=== PATIENT | male | born 1930 | race Caucasian/White ===

== ENCOUNTER 2019-01-08 00:19 | Day surgery (SDC) | payer MEDICARE, OTHER ==
[~2019-01-08 00:19] MED LIST: AMIO200 PO; ASPI325; ASPI81CH PO; ATOR10 PO; Amoxicillin500 MG PO; CEPH500 PO; CYAN500 PO; FINA5 PO; IRON325 MG PO; MAGOXI400 PO; METO50 PO; METO50ER PO; OMEPRAZOLE MAGN20 MG PO; PRAV20 PO; ROPI.25 PO; RXONDA4ODT MM; TAMS.4ER PO; WARF5 PO
== END 2019-01-08 15:35 | disposition home or self-care (01) ==
LOC: ATC 00:19
DX: D50.9 Iron deficiency anemia, unspecified (principal); D51.9 Vitamin B12 deficiency anemia, unspecified; I12.9 Hypertensive chronic kidney disease with stage 1 through stage 4 chronic kidney disease, or unspecified chronic kidney disease; N18.9 Chronic kidney disease, unspecified; D63.1 Anemia in chronic kidney disease; I48.91 Unspecified atrial fibrillation; I25.10 Atherosclerotic heart disease of native coronary artery without angina pectoris; Z87.891 Personal history of nicotine dependence; Z79.899 Other long term (current) drug therapy; Z79.01 Long term (current) use of anticoagulants
CPT/HCPCS: 36430; 86850; 86900; 86901; 86923; J7050; P9016

== ENCOUNTER 2019-03-12 12:27 | Day surgery (SDC) | payer MEDICARE, OTHER ==
[~2019-03-12] VITALS: Ht 177.8 cm; Wt 68.2 kg
[~2019-03-12 12:27] MED LIST changes: +BISA10S PR; +DONE5 PO; +FERSU300 PO; +Flonase 0.05% N16 GM; +OMEPRAZOLE20 MG PO; +PHYSICIANS1000 MCG/1 IJ; +SUCR1 PO
--- NOTE | 2019-03-12 14:46 | NUR ---
03/12/19 1446 Miguelina Gayle PT'S STATES PATIENT WAS RECENTLY DIAGNOSED WITH "WATER AROUND HIS LUNGS." BILATERAL WHEEZES HEARD THROUGHOUT LUNGS. CHART GIVEN TO DR. MALIK FOR ANESTHESIA REVIEW. DR. MALIK CONSULTED AND AGREES PATIENT NEEDS TO BE ANESTHESIA CASE. DR. NOWAK INTO PATIENT TO SEE PATIENT, AGREES WITH PLAN TO CONTINUE PROCEDURE MAC/ANESTHESIA CASE.
--- NOTE | 2019-03-12 15:15 | NUR ---
03/12/19 1515 Miguelina GayleEnid LIDOCAINE 4% UPDRAFT TREATMENT CONDUCTED IN ENDO ROOM DUE TO NEW ORDER.
== END 2019-03-12 16:14 | disposition home or self-care (01) ==
LOC: ORSCSDS 12:27
DX: R93.5 Abnormal findings on diagnostic imaging of other abdominal regions, including retroperitoneum (principal); K21.9 Gastro-esophageal reflux disease without esophagitis; K44.9 Diaphragmatic hernia without obstruction or gangrene; K29.70 Gastritis, unspecified, without bleeding; I12.9 Hypertensive chronic kidney disease with stage 1 through stage 4 chronic kidney disease, or unspecified chronic kidney disease; N18.3 Chronic kidney disease, stage 3 (moderate); I25.10 Atherosclerotic heart disease of native coronary artery without angina pectoris; I48.91 Unspecified atrial fibrillation; G47.33 Obstructive sleep apnea (adult) (pediatric); Z79.899 Other long term (current) drug therapy
CPT/HCPCS: 88305; 88342; J2001; J2250; J2704; J7120

== ENCOUNTER 2019-04-30 00:40 | Day surgery (SDC) | payer MEDICARE, OTHER ==
[2019-04-29 09:46] LABS: BASOPHILS ABSOLUTE AUTO 0.01 K/mm3 (0.00-0.23); BASOPHILS PERCENT AUTO 0 % (0-2); EOSINOPHILS ABSOLUTE AUTO 0.15 K/mm3 (0.00-0.68); EOSINOPHILS PERCENT AUTO 2 % (0-6); Hematocrit 27.3 % (37.0-53.0); Hemoglobin 7.6 g/dL (13.5-17.5); IMMATURE GRAN ABSOLUTE AUTO 0.01 K/mm3 (0.00-0.10); IMMATURE GRAN PERCENT AUTO 0 % (0-1); LYMPHOCYTES ABSOLUTE AUTO 0.92 K/mm3 (0.84-5.20); LYMPHOCYTES PERCENT AUTO 14 % (21-46); MONOCYTES ABSOLUTE AUTO 0.58 K/mm3 (0.16-1.47); MONOCYTES PERCENT AUTO 9 % (4-13); Mean Corpuscular HGB Conc 27.8 g/dL (31.5-36.5); Mean Corpuscular Volume 101 fL (80-100); NEUTROPHILS ABSOLUTE AUTO 5.07 K/mm3 (1.96-9.15); NEUTROPHILS PERCENT AUTO 75 % (41-73); Platelet Count 189 K/mm3 (150-400); RDW Coefficient Variation 17.9 % (11.7-14.2); RDW Standard Deviation 66.3 fL (35.1-46.3); Red Blood Cell Count 2.71 M/mm3 (4.30-5.90); White Blood Cell Count 6.74 K/mm3 (4.00-11.30)
[2019-04-29 10:01] LABS: Percent Saturation 5.7 % (20.0-50.0)
== END 2019-04-30 23:03 | disposition home or self-care (01) ==
LOC: ATC 00:40
PROVIDERS: Registered Nurse Oncology
PROC: 30243N1 Transfusion of Nonautologous Red Blood Cells into Central Vein, Percutaneous Approach (ICD-10-PCS; principal; 2019-04-30)
DX: D50.9 Iron deficiency anemia, unspecified (principal); D51.9 Vitamin B12 deficiency anemia, unspecified; I12.9 Hypertensive chronic kidney disease with stage 1 through stage 4 chronic kidney disease, or unspecified chronic kidney disease; N18.3 Chronic kidney disease, stage 3 (moderate); D63.1 Anemia in chronic kidney disease; I48.91 Unspecified atrial fibrillation; I25.10 Atherosclerotic heart disease of native coronary artery without angina pectoris; H54.40 Blindness, one eye, unspecified eye; J44.9 Chronic obstructive pulmonary disease, unspecified; G47.30 Sleep apnea, unspecified; I73.9 Peripheral vascular disease, unspecified; R05 Cough; Z95.1 Presence of aortocoronary bypass graft; Z95.5 Presence of coronary angioplasty implant and graft; Z90.49 Acquired absence of other specified parts of digestive tract; Z87.891 Personal history of nicotine dependence; Z79.01 Long term (current) use of anticoagulants; Z79.899 Other long term (current) drug therapy
CPT/HCPCS: 36415; 36430; 82607; 82728; 82746; 83540; 83550; 85025; 86850; 86900; 86901; 86923; J7050; P9016

== ENCOUNTER 2020-01-15 00:28 | Day surgery (SDC) | payer MEDICARE, OTHER ==
[2020-01-13 10:44] LABS: BASOPHILS ABSOLUTE AUTO 0.01 K/mm3 (0.00-0.23); BASOPHILS PERCENT AUTO 0 % (0-2); EOSINOPHILS ABSOLUTE AUTO 0.26 K/mm3 (0.00-0.68); EOSINOPHILS PERCENT AUTO 3 % (0-6); Hematocrit 26.7 % (37.0-53.0); Hemoglobin 7.9 g/dL (13.5-17.5); IMMATURE GRAN ABSOLUTE AUTO 0.02 K/mm3 (0.00-0.10); IMMATURE GRAN PERCENT AUTO 0 % (0-1); LYMPHOCYTES ABSOLUTE AUTO 0.84 K/mm3 (0.84-5.20); LYMPHOCYTES PERCENT AUTO 11 % (21-46); MONOCYTES ABSOLUTE AUTO 0.85 K/mm3 (0.16-1.47); MONOCYTES PERCENT AUTO 11 % (4-13); Mean Corpuscular HGB Conc 29.6 g/dL (31.5-36.5); Mean Corpuscular Volume 105 fL (80-100); Mean Platelet Volume 11.4 fL (9.1-12.4); NEUTROPHILS PERCENT AUTO 75 % (41-73); Platelet Count 189 K/mm3 (150-400); RDW Coefficient Variation 16.8 % (11.7-14.2); RDW Standard Deviation 64.8 fL (35.1-46.3); Red Blood Cell Count 2.55 M/mm3 (4.30-5.90); White Blood Cell Count 7.78 K/mm3 (4.00-11.30)
[2020-01-13 10:46] LABS: Percent Saturation 12.2 % (20.0-50.0)
== END 2020-01-15 15:39 | disposition home or self-care (01) ==
LOC: ATC 00:28
PROVIDERS: Registered Nurse Oncology
DX: I12.9 Hypertensive chronic kidney disease with stage 1 through stage 4 chronic kidney disease, or unspecified chronic kidney disease (principal); N18.3 Chronic kidney disease, stage 3 (moderate); E53.8 Deficiency of other specified B group vitamins; D63.1 Anemia in chronic kidney disease; J44.9 Chronic obstructive pulmonary disease, unspecified; H54.61 Unqualified visual loss, right eye, normal vision left eye; I25.10 Atherosclerotic heart disease of native coronary artery without angina pectoris; Z95.5 Presence of coronary angioplasty implant and graft; Z87.891 Personal history of nicotine dependence; Z79.01 Long term (current) use of anticoagulants; Z79.899 Other long term (current) drug therapy
CPT/HCPCS: 36415; 82607; 82728; 83540; 83550; 85025; 86850; 86900; 86901; 86923; J7050; P9016

== ENCOUNTER 2020-03-31 21:27 | Inpatient (IN) | payer MEDICARE, OTHER ==
[~2020-03-31] VITALS: Ht 177.8 cm; Wt 67.8 kg
[2020-03-31 22:58] LABS: BASOPHILS ABSOLUTE AUTO 0.01 K/mm3 (0.00-0.23); BASOPHILS PERCENT AUTO 0 % (0-2); EOSINOPHILS ABSOLUTE AUTO 0.03 K/mm3 (0.00-0.68); EOSINOPHILS PERCENT AUTO 0 % (0-6); Hematocrit 34.7 % (37.0-53.0); Hemoglobin 10.8 g/dL (13.5-17.5); IMMATURE GRAN ABSOLUTE AUTO 0.05 K/mm3 (0.00-0.10); IMMATURE GRAN PERCENT AUTO 0 % (0-1); LYMPHOCYTES ABSOLUTE AUTO 0.21 K/mm3 (0.84-5.20); LYMPHOCYTES PERCENT AUTO 2 % (21-46); MONOCYTES ABSOLUTE AUTO 0.36 K/mm3 (0.16-1.47); MONOCYTES PERCENT AUTO 3 % (4-13); Mean Corpuscular HGB 30.6 pg (26.0-34.0); Mean Corpuscular HGB Conc 31.1 g/dL (31.5-36.5); Mean Corpuscular Volume 98 fL (80-100); Mean Platelet Volume 11.4 fL (9.1-12.4); NEUTROPHILS ABSOLUTE AUTO 11.63 K/mm3 (1.96-9.15); NEUTROPHILS PERCENT AUTO 95 % (41-73); Platelet Count 170 K/mm3 (150-400); RDW Coefficient Variation 15.3 % (11.7-14.2); RDW Standard Deviation 55.3 fL (35.1-46.3); Red Blood Cell Count 3.53 M/mm3 (4.30-5.90); White Blood Cell Count 12.29 K/mm3 (4.00-11.30)
[2020-03-31 23:30] LABS: Alanine Aminotransfer (ALT/SGP 29 U/L (12-78); Albumin, Blood 2.7 g/dL (3.4-5.0); Albumin/Globulin Ratio 0.8 (0.8-1.8); Alk Phos 116 U/L (50-136); Anion Gap 5 mmol/L (6-16); Aspartate Aminotrans (AST/SGOT 37 U/L (12-37); Bilirubin, Total 0.3 mg/dL (0.1-1.0); Blood Urea Nitrogen 36 mg/dL (8-24); CO2, Blood 25 mmol/L (21-32); Calcium, Blood 8.3 mg/dL (8.5-10.1); Chloride, Blood 113 mmol/L (98-108); Globulin, Blood 3.5 g/dL (2.2-4.0); Glomerular Filtration Rate >60 (60-); Glucose, Blood 121 mg/dL (70-99); Potassium, Blood 4.3 mmol/L (3.5-5.5); Sodium, Blood 143 mmol/L (136-145); Total Protein, Blood 6.2 g/dL (6.4-8.2); Troponin I <0.015 ng/mL (0.000-0.040)
[2020-04-01 00:51] LABS: Influenza A, PCR Negative (NEGATIVE); Influenza B, PCR Negative (NEGATIVE); Resp Syncytial Virus, PCR Negative (NEGATIVE); SARS-Cov-2 (COVID-19) PCR, MMC Negative (NEGATIVE)
--- NOTE | 2020-04-01 04:15 | NUR ---
SHIFT SUMMARY PT ER ADMIT THIS SHIFT FOR COPD EXAC. PT IS A/O X3-4 BUT IS FORGETFUL. 3L O2 IN PLACE. RA AT BASELINE PER ER NURSE REPORT. PT RESP E/U, SATS WNL. LUNGS DIMINISED T/O WITH WET PRODUCTIVE COUGH. PT DENIES PAIN OR SOB. IV ABX ADMINISTERED IN ED, AND IVF INFUSING AT THIS TIME. IV SOLUMEDROL Q 6HR TELE IN PLACE WITH AFIB RHYTHMN WITH PACED BEATS AT 80. ADMISSION IS COMPLETE ASIDE FROM MED REC, NEED TO OBTAIN LIST FROM PT PHAMRMACY. BED ALARM IN PLACE FOR SAFETY, BED IN LOWEST POSITION.
[2020-04-01] MEDS ORDERED: ISOSORBIDE MONO30 MG PO (09:48)
[2020-04-01] MEDS ORDERED: PROAIR DIGIHAL90 MCG INH (09:48)
[2020-04-01] MEDS ORDERED: METO25ER PO (09:49)
[2020-04-01] MEDS ORDERED: BUDE.25 INH (09:50)
[2020-04-01] MEDS ORDERED: AIRDUO DIGIHAL1 EAC1 INH (09:50)
[2020-04-01] MEDS ORDERED: WARF5 PO (09:57)
--- NOTE | 2020-04-01 18:06 | NUR ---
SHIFT SUMMARY PT IS A/O X3; PLEASANT AND COOPERATIVE WITH CARE. HE IS NEW [place] AND USES HEARING AIDES. 1-SBA W/FWW TO THE BSC/BA. DOES NOT C/O OF ANY CP OR SOB. HAS BEEN RESTING COMFORTABLY FOR THE MAJORITY OF THE DAY. GETS BREATHING TREATMENTS. EKG IN THE AM. VSS; RESTING COMFORTABLY WITH CALL LIGHT IN REACH.
--- NOTE | 2020-04-02 03:41 | NUR ---
SHIFT SUMMARY PATIENT HAD NO ACUTE CHANGES OBSERVED. AXOX 3 WITH HX OF DEMENTIA. ONE ASSIST TO BSC AND [place]. PIV REMAINS INTACT. ROBOTIC TECHNICIAN REPORTS PACED @ 98. DENIES CHEST PAIN, SOB, AND N/V. LR INFUSING AT 75 mL/HR. VSS/AFEBRILE. EKG IN AM. CALL LIGHT IN REACH. BED IN LOWEST POSITION. WILL CONTINUE TO MONITOR UNTIL DAY SHIFT NURSE ASSUMES CARE.
[2020-04-02 04:46] LABS: BASOPHILS ABSOLUTE AUTO 0.02 K/mm3 (0.00-0.23); BASOPHILS PERCENT AUTO 0 % (0-2); EOSINOPHILS PERCENT AUTO 0 % (0-6); Hematocrit 30.6 % (37.0-53.0); Hemoglobin 9.4 g/dL (13.5-17.5); IMMATURE GRAN ABSOLUTE AUTO 0.08 K/mm3 (0.00-0.10); IMMATURE GRAN PERCENT AUTO 0 % (0-1); LYMPHOCYTES ABSOLUTE AUTO 0.33 K/mm3 (0.84-5.20); LYMPHOCYTES PERCENT AUTO 2 % (21-46); MONOCYTES ABSOLUTE AUTO 0.87 K/mm3 (0.16-1.47); MONOCYTES PERCENT AUTO 5 % (4-13); Mean Corpuscular HGB 29.8 pg (26.0-34.0); Mean Corpuscular HGB Conc 30.7 g/dL (31.5-36.5); Mean Corpuscular Volume 97 fL (80-100); Mean Platelet Volume 12.1 fL (9.1-12.4); NEUTROPHILS ABSOLUTE AUTO 17.76 K/mm3 (1.96-9.15); NEUTROPHILS PERCENT AUTO 93 % (41-73); Platelet Count 136 K/mm3 (150-400); RDW Coefficient Variation 15.4 % (11.7-14.2); RDW Standard Deviation 54.6 fL (35.1-46.3); Red Blood Cell Count 3.15 M/mm3 (4.30-5.90); White Blood Cell Count 19.06 K/mm3 (4.00-11.30)
[2020-04-02 05:01] LABS: Anion Gap 5 mmol/L (6-16); Blood Urea Nitrogen 39 mg/dL (8-24); Bun/Creatinine Ratio 33.6 (12.0-20.0); CO2, Blood 26 mmol/L (21-32); Calcium, Blood 8.8 mg/dL (8.5-10.1); Chloride, Blood 111 mmol/L (98-108); Creatinine, Blood 1.16 mg/dL (0.60-1.20); Glomerular Filtration Rate >60 (60-); Glucose, Blood 153 mg/dL (70-99); Potassium, Blood 4.8 mmol/L (3.5-5.5); Sodium, Blood 142 mmol/L (136-145)
[2020-04-02 05:30] LABS: Base Excess Venous -1.5 mmol/L; Bicarbonate Venous 22.9 mmol/L (24.0-30.0); PCO2 Venous 45.8 mmHg (38-42); PO2 Venous 60.2 mmHg (38-42); pH Blood Venous 7.33 (7.34-7.37)
[2020-04-02 12:35] LABS: International Normalized Ratio 2.16; Prothrombin Time Results 22.1 Sec (9.7-11.5)
--- NOTE | 2020-04-02 16:57 | NUR ---
SHIFT SUMMARY PT RESTING QUIETLY AT START OF SHIFT. WOKE EASILY FOR CARE. PT UP TO EOB FOR MEALS. USING URINAL AT BS NEEDED. DR NUNO IN TO SEE PT THIS AM. NEW ORDERS PLACED. HOME MEDS ORDERED WELL. COUMADIN TO BE RESTARTED TONIGHT; PER PHARMACY. PT WITH HX OF A-FIB. PT MEDICATED EARLIER FOR C/O PAIN TO L SHOULDER. PT REPORTED FALLING AT HOME SOME TIME AGO, GETTING "A SHOT IN IT" WHICH SEEMED TO HELP FOR A WHILE, BUT MAY NEED ANOTHER ONE. PT IS A&O, ABLE TO MAKE NEEDS KNOWN.
--- NOTE | 2020-04-03 04:18 | NUR ---
SHIFT SUMMARY PATIENT HAD NO ACUTE CHANGES OBSERVED. AXOX 3 AND ONE ASSIST TO BSC. USES URINAL AT BEDSIDE. PIV REMAINS INTACT. NO FLUIDS INFUSING. DENIES PAIN, SOB, AND N/V. VSS/AFEBRILE. COOPERATIVE WITH CARE. CALL LIGHT IN REACH. BED IN LOWEST POSITION. WILL CONTINUE TO MONITOR UNTIL DAY SHIFT NURSE ASSUMES CARE.
[2020-04-03 05:33] LABS: International Normalized Ratio 2.05; Prothrombin Time Results 21.1 Sec (9.7-11.5)
[2020-04-03] MEDS ORDERED: AZIT500 PO (10:35)
[2020-04-03] MEDS ORDERED: VISBIOME PROBI1 EACH PO (10:36)
[2020-04-03] MEDS ORDERED: PRED20 PO (10:36)
[2020-04-03] MEDS ORDERED: CEFU500T30 PO (10:37)
--- NOTE | 2020-04-03 13:09 | NUR ---
DISCHARGE NOTE PATIENT ALERT AND ORIENTED, [place]. PATIENT DISCHARGED TO HOME. PATIENT UP INDEPENDENTLY TO THE WHEELCHAIR FOR DISCHARGE. DISCHARGE INFORMAITON EXPLAINED TO MELVINTENT. PATIENT ENCOURAGED TO REVIEW DISCHARGE MEDICATIONS WITH ONCE AT HOME, PATIENT STATES SHE TAKES CARE OF HIS MEDICATIONS. UNABLE TO BE PRESENT DUE TO RECENT SURGERY. PATIENT BELONGINGS WITH PATIENT UPON DISCHARGE. IV'S REMOVED PRIOR TO DISCHARGE. PATIENT TO VEHICLE VIA WHEELCHAIR WITH BLINDSTITCH LAPEL PADDER.
== END 2020-04-03 12:52 | disposition home or self-care (01) | DRG 871 ==
LOC: ER 21:27 → MEDS 23:51 → ER 04-01 03:00 → MEDS 04-01 03:00
PROVIDERS: Internal Medicine; Physician Assistant; ADMIT Internal Medicine
DX: A41.9 Sepsis, unspecified organism (principal); J18.9 Pneumonia, unspecified organism; J96.01 Acute respiratory failure with hypoxia; J96.02 Acute respiratory failure with hypercapnia; J44.0 Chronic obstructive pulmonary disease with (acute) lower respiratory infection; I48.20 Chronic atrial fibrillation, unspecified; Z66 Do not resuscitate; Z20.828 Contact with and (suspected) exposure to other viral communicable diseases; N18.30 Chronic kidney disease, stage 3 unspecified; I25.10 Atherosclerotic heart disease of native coronary artery without angina pectoris; Z95.0 Presence of cardiac pacemaker; Z95.5 Presence of coronary angioplasty implant and graft; D63.1 Anemia in chronic kidney disease; Z86.73 Personal history of transient ischemic attack (TIA), and cerebral infarction without residual deficits; Z87.891 Personal history of nicotine dependence; I25.2 Old myocardial infarction; N40.0 Benign prostatic hyperplasia without lower urinary tract symptoms; G47.33 Obstructive sleep apnea (adult) (pediatric); G30.9 Alzheimer's disease, unspecified; F02.80 Dementia in other diseases classified elsewhere, unspecified severity, without behavioral disturbance, psychotic disturbance, mood disturbance, and anxiety
CPT/HCPCS: 0241U; 36415; 71045; 80048; 80053; 82803; 83605; 84484; 85025; 85379; 85610; 87040; 93005; 93010; 94640; 94667; 94760; 96365; 96367; 96375; 99285-25; A9270; A9270-GY; J0456; J0696; J1650; J2930; J7050; J7120; J7512

== ENCOUNTER 2020-04-14 18:50 | Emergency (ER) | payer MEDICARE, OTHER ==
[~2020-04-14] VITALS: Ht 177.8 cm; Wt 70.8 kg
[~2020-04-14 18:50] MED LIST changes: +AIRDUO DIGIHAL1 EAC1 INH; +AZIT500 PO; +BUDE.25 INH; +CEFU500T30 PO; +ISOSORBIDE MONO30 MG PO; +METO25ER PO; +PRED20 PO; +PROAIR DIGIHAL90 MCG INH; +VISBIOME PROBI1 EACH PO
[2020-04-14 19:41] LABS: BASOPHILS ABSOLUTE AUTO 0.01 K/mm3 (0.00-0.23); BASOPHILS PERCENT AUTO 0 % (0-2); EOSINOPHILS ABSOLUTE AUTO 0.02 K/mm3 (0.00-0.68); EOSINOPHILS PERCENT AUTO 0 % (0-6); Hematocrit 32.1 % (37.0-53.0); Hemoglobin 9.9 g/dL (13.5-17.5); IMMATURE GRAN PERCENT AUTO 1 % (0-1); LYMPHOCYTES ABSOLUTE AUTO 0.22 K/mm3 (0.84-5.20); LYMPHOCYTES PERCENT AUTO 2 % (21-46); MONOCYTES ABSOLUTE AUTO 0.75 K/mm3 (0.16-1.47); MONOCYTES PERCENT AUTO 6 % (4-13); Mean Corpuscular HGB Conc 30.8 g/dL (31.5-36.5); Mean Corpuscular Volume 97 fL (80-100); Mean Platelet Volume 11.2 fL (9.1-12.4); NEUTROPHILS ABSOLUTE AUTO 12.56 K/mm3 (1.96-9.15); NEUTROPHILS PERCENT AUTO 92 % (41-73); Platelet Count 155 K/mm3 (150-400); RDW Coefficient Variation 16.7 % (11.7-14.2); RDW Standard Deviation 59.1 fL (35.1-46.3); White Blood Cell Count 13.66 K/mm3 (4.00-11.30)
[2020-04-14 20:00] LABS: Anion Gap 7 mmol/L (6-16); Blood Urea Nitrogen 30 mg/dL (8-24); Bun/Creatinine Ratio 26.1 (12.0-20.0); CO2, Blood 26 mmol/L (21-32); Calcium, Blood 8.2 mg/dL (8.5-10.1); Chloride, Blood 105 mmol/L (98-108); Creatinine, Blood 1.15 mg/dL (0.60-1.20); Glomerular Filtration Rate >60 (60-); Glucose, Blood 144 mg/dL (70-99); Potassium, Blood 4.3 mmol/L (3.5-5.5); Sodium, Blood 138 mmol/L (136-145)
== END 2020-04-14 21:25 | disposition home or self-care (01) ==
LOC: ER 18:50
PROVIDERS: Student in an Organized Health Care Education/Training Program
DX: R68.83 Chills (without fever) (principal); R06.00 Dyspnea, unspecified; R05 Cough; I25.2 Old myocardial infarction; I25.10 Atherosclerotic heart disease of native coronary artery without angina pectoris; J44.9 Chronic obstructive pulmonary disease, unspecified; I48.91 Unspecified atrial fibrillation; Z20.828 Contact with and (suspected) exposure to other viral communicable diseases; Z79.51 Long term (current) use of inhaled steroids; Z79.01 Long term (current) use of anticoagulants; Z79.899 Other long term (current) drug therapy; Z86.73 Personal history of transient ischemic attack (TIA), and cerebral infarction without residual deficits; Z95.0 Presence of cardiac pacemaker; Z95.5 Presence of coronary angioplasty implant and graft; Z95.1 Presence of aortocoronary bypass graft; Z87.891 Personal history of nicotine dependence
CPT/HCPCS: 71046; 80048; 85025; 99284-25

== ENCOUNTER 2020-06-07 12:44 | Emergency (ER) | payer MEDICARE, OTHER ==
[~2020-06-07] VITALS: Ht 177.8 cm; Wt 68.0 kg
[2020-06-07 15:33] LABS: BASOPHILS ABSOLUTE AUTO 0.02 K/mm3 (0.00-0.23); BASOPHILS PERCENT AUTO 0 % (0-2); EOSINOPHILS PERCENT AUTO 3 % (0-6); Hemoglobin 10.2 g/dL (13.5-17.5); IMMATURE GRAN ABSOLUTE AUTO 0.04 K/mm3 (0.00-0.10); IMMATURE GRAN PERCENT AUTO 1 % (0-1); LYMPHOCYTES ABSOLUTE AUTO 0.91 K/mm3 (0.84-5.20); LYMPHOCYTES PERCENT AUTO 13 % (21-46); MONOCYTES ABSOLUTE AUTO 0.61 K/mm3 (0.16-1.47); MONOCYTES PERCENT AUTO 9 % (4-13); Mean Corpuscular HGB 31.1 pg (26.0-34.0); Mean Corpuscular HGB Conc 30.9 g/dL (31.5-36.5); Mean Corpuscular Volume 101 fL (80-100); Mean Platelet Volume 11.3 fL (9.1-12.4); NEUTROPHILS ABSOLUTE AUTO 5.25 K/mm3 (1.96-9.15); NEUTROPHILS PERCENT AUTO 75 % (41-73); Platelet Count 183 K/mm3 (150-400); RDW Coefficient Variation 18.2 % (11.7-14.2); RDW Standard Deviation 67.6 fL (35.1-46.3); Red Blood Cell Count 3.28 M/mm3 (4.30-5.90); White Blood Cell Count 7.03 K/mm3 (4.00-11.30)
[2020-06-07 15:48] LABS: International Normalized Ratio 1.45; Prothrombin Time Results 15.2 Sec (9.7-11.5)
[2020-06-07 15:55] LABS: Alanine Aminotransfer (ALT/SGP 24 U/L (12-78); Albumin, Blood 3.3 g/dL (3.4-5.0); Albumin/Globulin Ratio 0.9 (0.8-1.8); Alk Phos 104 U/L (50-136); Anion Gap 3 mmol/L (6-16); Aspartate Aminotrans (AST/SGOT 23 U/L (12-37); Bilirubin, Total 0.3 mg/dL (0.1-1.0); Blood Urea Nitrogen 30 mg/dL (8-24); Bun/Creatinine Ratio 24.4 (12.0-20.0); CO2, Blood 28 mmol/L (21-32); Calcium, Blood 8.9 mg/dL (8.5-10.1); Chloride, Blood 110 mmol/L (98-108); Creatinine, Blood 1.23 mg/dL (0.60-1.20); Globulin, Blood 3.7 g/dL (2.2-4.0); Glomerular Filtration Rate 59 (60-); Glucose, Blood 92 mg/dL (70-99); Potassium, Blood 5.1 mmol/L (3.5-5.5); Sodium, Blood 141 mmol/L (136-145); Troponin I <0.015 ng/mL (0.000-0.040)
== END 2020-06-07 16:32 | disposition home or self-care (01) ==
LOC: ER 12:44
PROVIDERS: Physician Assistant
DX: R53.1 Weakness (principal); I25.2 Old myocardial infarction; Z91.81 History of falling; Z79.01 Long term (current) use of anticoagulants; Z79.899 Other long term (current) drug therapy; Z95.0 Presence of cardiac pacemaker; Z95.5 Presence of coronary angioplasty implant and graft; Z87.891 Personal history of nicotine dependence
CPT/HCPCS: 70450; 72070; 72100; 80053; 84484; 85025; 85610; 85730; 93005; 93010; 99284-25

== ENCOUNTER 2020-11-14 09:01 | Day surgery (SDC) | payer MEDICARE, OTHER ==
[~2020-11-14] VITALS: Ht 177.8 cm; Wt 67.0 kg
--- NOTE | 2020-11-14 12:46 | NUR ---
HANDOFF REPORT GIVEN FROM DAVY SMILEY. PT WITH SHEATH LEFT IN PLACE LEFT GROIN, STABLE. IN WAITING AREA, GAVE HER UPDATE ON TENTATIVE DISCHARGE.
--- NOTE | 2020-11-14 13:26 | NUR ---
ACT DRAWN AND IS 213. WILL RECHECK IN ANOTHER HOUR.
--- NOTE | 2020-11-14 14:37 | NUR ---
DR GREGORIO IN TO SEE PT, WAS TOLD ABOUT PT BLEEDING FROM SHEATH SITE. NO HEMATOMA NOTED AND PT NOT IN ANY DISCOMFORT. PULLED SHEATH AND IS APPLYING MANUAL PRESSURE.
--- NOTE | 2020-11-14 15:18 | NUR ---
MANUAL PRESSURE HEL FOR A TOTAL OF 40 MINUTES AT ARTERIAL GROIN SITE, LEFT SIDE, WITH HEMOSTASIS.
--- NOTE | 2020-11-14 16:54 | NUR ---
PT TO BE PLACED IN PCU FOR EXTENDED RECOVERY
--- NOTE | 2020-11-14 17:51 | NUR ---
HANDOFF REPORT GIVEN TO KRISHNA SMILEY PCU. GROIN SITE UNCHANGED AND STABLE SINCE HEMOSTASIS. PT HAS BEEN NOTIFIED OF TENTATIVE DISCHARGE TIME AND ROOM NUMBER. NO FURTHER QUESTIONS AT THIS TIME.
--- NOTE | 2020-11-14 22:43 | NUR ---
DISCHARGED PT AND GIVEN DC INSTRUCTIONS. THIS RN AND EXAMINED THE OP SITE ON THE PT'S L GROIN AND SITE INSTRUCTIONS WERE GIVEN. PT DENIED ANY PAIN AT THE SITE UPON DISCHARGE. PT WAS ABLE TO TRANSFER SELF FROM BED TO WHEELCHAIR USING PERSONAL CANE. PT TAKEN OUT BY WHEELCHAIR BY SANGEETA Vale
== END 2020-11-14 22:43 | disposition home or self-care (01) ==
LOC: MHTC 09:01 → PCU 16:41 → MHTC 22:43
DX: I35.0 Nonrheumatic aortic (valve) stenosis (principal); I25.10 Atherosclerotic heart disease of native coronary artery without angina pectoris; I11.0 Hypertensive heart disease with heart failure; I50.9 Heart failure, unspecified; Z95.1 Presence of aortocoronary bypass graft; Z95.5 Presence of coronary angioplasty implant and graft; I73.9 Peripheral vascular disease, unspecified; J44.9 Chronic obstructive pulmonary disease, unspecified; I48.20 Chronic atrial fibrillation, unspecified; I25.2 Old myocardial infarction; D50.9 Iron deficiency anemia, unspecified; G47.33 Obstructive sleep apnea (adult) (pediatric); F03.90 Unspecified dementia, unspecified severity, without behavioral disturbance, psychotic disturbance, mood disturbance, and anxiety; K21.9 Gastro-esophageal reflux disease without esophagitis; Z79.01 Long term (current) use of anticoagulants; Z95.0 Presence of cardiac pacemaker
CPT/HCPCS: 76937; 85347; 93457; 93571; 99152; 99153; A9270; C1769; C1887; C1894; J0360; J1644; J2250; J3010; J7030; J7040; J7050; Q9967

== ENCOUNTER 2021-01-06 17:02 | Inpatient (IN) | payer MEDICARE, OTHER ==
[~2021-01-06] VITALS: Ht 177.8 cm; Wt 65.3 kg
[2021-01-06 17:58] LABS: BASOPHILS ABSOLUTE AUTO 0.02 K/mm3 (0.00-0.23); BASOPHILS PERCENT AUTO 0 % (0-2); EOSINOPHILS ABSOLUTE AUTO 0.07 K/mm3 (0.00-0.68); EOSINOPHILS PERCENT AUTO 1 % (0-6); Hematocrit 24.8 % (37.0-53.0); Hemoglobin 7.6 g/dL (13.5-17.5); IMMATURE GRAN ABSOLUTE AUTO 0.07 K/mm3 (0.00-0.10); IMMATURE GRAN PERCENT AUTO 1 % (0-1); LYMPHOCYTES ABSOLUTE AUTO 0.71 K/mm3 (0.84-5.20); LYMPHOCYTES PERCENT AUTO 7 % (21-46); MONOCYTES ABSOLUTE AUTO 0.79 K/mm3 (0.16-1.47); MONOCYTES PERCENT AUTO 7 % (4-13); Mean Corpuscular HGB Conc 30.6 g/dL (31.5-36.5); Mean Corpuscular Volume 95 fL (80-100); Mean Platelet Volume 11.7 fL (9.1-12.4); NEUTROPHILS ABSOLUTE AUTO 9.01 K/mm3 (1.96-9.15); NEUTROPHILS PERCENT AUTO 84 % (41-73); Platelet Count 224 K/mm3 (150-400); RDW Coefficient Variation 15.1 % (11.7-14.2); RDW Standard Deviation 52.6 fL (35.1-46.3); Red Blood Cell Count 2.62 M/mm3 (4.30-5.90); White Blood Cell Count 10.67 K/mm3 (4.00-11.30)
[2021-01-06 18:03] LABS: Bun/Creatinine Ratio 35.9 (12.0-20.0); Calcium, Blood 8.6 mg/dL (8.5-10.1); Creatinine, Blood 1.45 mg/dL (0.60-1.20); Potassium, Blood 4.6 mmol/L (3.5-5.5)
[2021-01-06 18:16] LABS: Prothrombin Time Results 80.1 Sec (9.7-11.5)
[2021-01-06 18:30] LABS: International Normalized Ratio 8.36
[2021-01-06 21:30] LABS: SARS-Cov-2 (COVID-19) PCR, MMC NEGATIVE (NEGATIVE)
[2021-01-07 01:30] LABS: BASOPHILS ABSOLUTE AUTO 0.01 K/mm3 (0.00-0.23); BASOPHILS PERCENT AUTO 0 % (0-2); EOSINOPHILS ABSOLUTE AUTO 0.13 K/mm3 (0.00-0.68); EOSINOPHILS PERCENT AUTO 2 % (0-6); Hematocrit 21.2 % (37.0-53.0); Hemoglobin 6.5 g/dL (13.5-17.5); IMMATURE GRAN ABSOLUTE AUTO 0.06 K/mm3 (0.00-0.10); IMMATURE GRAN PERCENT AUTO 1 % (0-1); LYMPHOCYTES PERCENT AUTO 6 % (21-46); MONOCYTES ABSOLUTE AUTO 0.72 K/mm3 (0.16-1.47); MONOCYTES PERCENT AUTO 9 % (4-13); Mean Corpuscular HGB 28.9 pg (26.0-34.0); Mean Corpuscular HGB Conc 30.7 g/dL (31.5-36.5); Mean Corpuscular Volume 94 fL (80-100); Mean Platelet Volume 11.6 fL (9.1-12.4); NEUTROPHILS ABSOLUTE AUTO 6.43 K/mm3 (1.96-9.15); NEUTROPHILS PERCENT AUTO 82 % (41-73); Platelet Count 172 K/mm3 (150-400); RDW Coefficient Variation 15.1 % (11.7-14.2); RDW Standard Deviation 51.9 fL (35.1-46.3); Red Blood Cell Count 2.25 M/mm3 (4.30-5.90); White Blood Cell Count 7.85 K/mm3 (4.00-11.30)
[2021-01-07 01:45] LABS: International Normalized Ratio 2.37
[2021-01-07 01:48] LABS: Albumin, Blood 2.4 g/dL (3.4-5.0); Albumin/Globulin Ratio 0.8 (0.8-1.8); Bilirubin, Total 0.2 mg/dL (0.1-1.0); Bun/Creatinine Ratio 33.3 (12.0-20.0); Calcium, Blood 8.3 mg/dL (8.5-10.1); Creatinine, Blood 1.5 mg/dL (0.60-1.20); Globulin, Blood 3.1 g/dL (2.2-4.0); Potassium, Blood 4.3 mmol/L (3.5-5.5); Total Protein, Blood 5.5 g/dL (6.4-8.2)
[2021-01-07 01:50] LABS: Prothrombin Time Results 24.4 Sec (9.7-11.5)
--- NOTE | 2021-01-07 12:53 | NUR ---
PATIENT REMAINS A&OX4 RECEIVED 1 UNIT PRB ORDERED TOLERATED TRANSFUSION WELL VS REMAINS STABLE DENIES PAIN/DISCOMFORT RESP EASY/EVEN/UNLABORED WILL CONT TO MONITOR
[2021-01-07 14:47] LABS: Hematocrit 23.1 % (37.0-53.0); Hemoglobin 7.1 g/dL (13.5-17.5)
[2021-01-07 17:36] LABS: Hematocrit 25.3 % (37.0-53.0); Hemoglobin 7.9 g/dL (13.5-17.5)
--- NOTE | 2021-01-07 17:43 | NUR ---
PATIENT REMAINS STABLE A&OX4 ABLE TO VERBALIZE NEEDS DENIES PAIN OR DISCOMFORT TRANSFUSION OF PRB ADMIN THIS SHIFT TOLERATED WELL H&H CONTINUES TO IMPROVE PER LAB RESULTS PATIENT WITH ADEQUATE PO INTAKE VOIDING CLEAR YELLOW URINE HAD NO BM THIS SHIFT SITTING UP AT BEDSIDE TOLERATED RESP EASY/EVEN/UNLABORED UPDATE GIVEN TO PATIENTS FAMILY WILL CONT TO MONITOR
[2021-01-08 01:13] LABS: Hematocrit 25.8 % (37.0-53.0)
--- NOTE | 2021-01-08 04:14 | NUR ---
SHIFT SUMMARY PT ADMITTED FOR HIGH INR. AAOX3. LAST H&H AT 0108 8.0 & 25.8. INR 2.73. NO SIGNIFICANT CHANGES THROUGHOUT SHIFT. VS STABLE, NO DISTRESS NOTED.
[2021-01-08 04:46] LABS: International Normalized Ratio 1.57; Prothrombin Time Results 16.5 Sec (9.7-11.5)
--- NOTE | 2021-01-08 12:23 | NUR ---
PT IS ALERT ORIENTED,WITH SOME FORGETFULLNESS AT TIMES,PTIS ON ROOM AIR,PT DENIES PAIN,N/V,SOB.PT IS IN BED, BED IN LOW POSITION CALL LIGHT WITHIN REACH.PT IS WAITING TO BE DISCHARGE.
== END 2021-01-08 12:22 | disposition home or self-care (01) | DRG 378 ==
LOC: ER 17:02 → MEDS 17:03
PROVIDERS: Physician Assistant; ADMIT Internal Medicine
PROC: 30233N1 Transfusion of Nonautologous Red Blood Cells into Peripheral Vein, Percutaneous Approach (ICD-10-PCS; principal; 2021-01-07)
DX: K92.2 Gastrointestinal hemorrhage, unspecified (principal); D62 Acute posthemorrhagic anemia; J44.9 Chronic obstructive pulmonary disease, unspecified; N40.0 Benign prostatic hyperplasia without lower urinary tract symptoms; N18.30 Chronic kidney disease, stage 3 unspecified; I25.10 Atherosclerotic heart disease of native coronary artery without angina pectoris; Z95.1 Presence of aortocoronary bypass graft; I25.2 Old myocardial infarction; Z86.73 Personal history of transient ischemic attack (TIA), and cerebral infarction without residual deficits; Z79.899 Other long term (current) drug therapy; Z79.01 Long term (current) use of anticoagulants; Z98.890 Other specified postprocedural states; G47.33 Obstructive sleep apnea (adult) (pediatric); Z90.49 Acquired absence of other specified parts of digestive tract; Z95.0 Presence of cardiac pacemaker
CPT/HCPCS: 36415; 36430; 80048; 80053; 85014; 85018; 85025; 85610; 86850; 86900; 86901; 86923; 90471; 90714; 93005; 93010; 96374; 96375; 96376; 99284-25; A9270; C9113; G0378; J3430; J7030; J7040; P9016; P9059; U0004

== ENCOUNTER 2021-01-11 15:32 | Inpatient (IN) | payer MEDICARE, OTHER ==
[~2021-01-11] VITALS: Ht 177.8 cm; Wt 66.7 kg
[2021-01-11 16:26] LABS: BASOPHILS ABSOLUTE AUTO 0.03 K/mm3 (0.00-0.23); BASOPHILS PERCENT AUTO 0 % (0-2); EOSINOPHILS ABSOLUTE AUTO 0.01 K/mm3 (0.00-0.68); EOSINOPHILS PERCENT AUTO 0 % (0-6); Hematocrit 25.7 % (37.0-53.0); IMMATURE GRAN ABSOLUTE AUTO 0.14 K/mm3 (0.00-0.10); IMMATURE GRAN PERCENT AUTO 1 % (0-1); LYMPHOCYTES ABSOLUTE AUTO 0.87 K/mm3 (0.84-5.20); LYMPHOCYTES PERCENT AUTO 5 % (21-46); MONOCYTES ABSOLUTE AUTO 1.21 K/mm3 (0.16-1.47); MONOCYTES PERCENT AUTO 6 % (4-13); Mean Corpuscular HGB 29.1 pg (26.0-34.0); Mean Corpuscular HGB Conc 31.1 g/dL (31.5-36.5); Mean Corpuscular Volume 94 fL (80-100); Mean Platelet Volume 11.5 fL (9.1-12.4); NEUTROPHILS ABSOLUTE AUTO 16.66 K/mm3 (1.96-9.15); NEUTROPHILS PERCENT AUTO 88 % (41-73); Platelet Count 199 K/mm3 (150-400); RDW Coefficient Variation 15.3 % (11.7-14.2); RDW Standard Deviation 52.2 fL (35.1-46.3); Red Blood Cell Count 2.75 M/mm3 (4.30-5.90); White Blood Cell Count 18.92 K/mm3 (4.00-11.30)
[2021-01-11 16:42] LABS: Albumin, Blood 2.3 g/dL (3.4-5.0); Albumin/Globulin Ratio 0.6 (0.8-1.8); Bilirubin, Total 0.3 mg/dL (0.1-1.0); Bun/Creatinine Ratio 26.1 (12.0-20.0); Calcium, Blood 8.5 mg/dL (8.5-10.1); Creatinine, Blood 1.38 mg/dL (0.60-1.20); Globulin, Blood 3.9 g/dL (2.2-4.0); Potassium, Blood 4.2 mmol/L (3.5-5.5); Total Protein, Blood 6.2 g/dL (6.4-8.2)
[2021-01-11 16:43] LABS: International Normalized Ratio 2.36; Prothrombin Time Results 24.3 Sec (9.7-11.5)
[2021-01-11 17:45] LABS: Source, Urine Clean Catch
[2021-01-11 17:49] LABS: Appearance, Urine Hazy (Clear); Bilirubin, Urine Neg (Neg); Blood, Urine Neg (Neg); Color, Urine Yellow (P-Yellow); Glucose Qualitative, Urine Neg (Neg); Ketones, Urine Neg (Neg); Leukocyte Esterase, Urine Neg (Neg); Nitrite, Urine Neg (Neg); Protein, Urine 2+ (Neg); Urobilinogen, Urine NORM (Normal)
[2021-01-11 18:06] LABS: White Blood Cells, Urine 0-2 /hpf (0-5)
[2021-01-11 18:07] LABS: Bacteria Few /hpf; Mucus Light (0-Heavy); Red Blood Cells, Urine 0-2 /hpf (0-2); Squamous Epithelial Cells Few /hpf (Few)
[2021-01-11 18:08] LABS: Amorphous Light (0-Heavy); Granular Casts 0-2 /lpf (0)
[2021-01-11 18:39] LABS: SARS-Cov-2 (COVID-19) PCR, MMC NEGATIVE (NEGATIVE)
[2021-01-12] MEDS ORDERED: CENTRUM SILVER1 EAC2 PO (00:38)
[2021-01-12] MEDS ORDERED: VITAMIN B125000 MC1 PO (00:42)
[2021-01-12] MEDS ORDERED: FERSU300 PO (00:43)
[2021-01-12 05:12] LABS: BASOPHILS ABSOLUTE AUTO 0.01 K/mm3 (0.00-0.23); BASOPHILS PERCENT AUTO 0 % (0-2); EOSINOPHILS PERCENT AUTO 0 % (0-6); IMMATURE GRAN ABSOLUTE AUTO 0.09 K/mm3 (0.00-0.10); IMMATURE GRAN PERCENT AUTO 1 % (0-1); LYMPHOCYTES PERCENT AUTO 2 % (21-46); MONOCYTES ABSOLUTE AUTO 0.26 K/mm3 (0.16-1.47); MONOCYTES PERCENT AUTO 2 % (4-13); Mean Corpuscular HGB 28.7 pg (26.0-34.0); Mean Corpuscular HGB Conc 30.4 g/dL (31.5-36.5); Mean Corpuscular Volume 94 fL (80-100); Mean Platelet Volume 11.6 fL (9.1-12.4); NEUTROPHILS ABSOLUTE AUTO 12.45 K/mm3 (1.96-9.15); NEUTROPHILS PERCENT AUTO 96 % (41-73); Platelet Count 155 K/mm3 (150-400); RDW Coefficient Variation 15.2 % (11.7-14.2); RDW Standard Deviation 52.5 fL (35.1-46.3); Red Blood Cell Count 2.44 M/mm3 (4.30-5.90); White Blood Cell Count 13.01 K/mm3 (4.00-11.30)
[2021-01-12 05:27] LABS: International Normalized Ratio 2.29; Prothrombin Time Results 23.6 Sec (9.7-11.5)
[2021-01-12 05:40] LABS: Albumin, Blood 2.2 g/dL (3.4-5.0); Albumin/Globulin Ratio 0.7 (0.8-1.8); Bilirubin, Total 0.4 mg/dL (0.1-1.0); Bun/Creatinine Ratio 25.5 (12.0-20.0); Calcium, Blood 8.5 mg/dL (8.5-10.1); Creatinine, Blood 1.37 mg/dL (0.60-1.20); Globulin, Blood 3.3 g/dL (2.2-4.0); Potassium, Blood 3.9 mmol/L (3.5-5.5); Thyroid Stimulating Hormone 0.618 uIU/mL (0.360-4.800); Total Protein, Blood 5.5 g/dL (6.4-8.2)
--- NOTE | 2021-01-12 06:18 | NUR ---
NO SIGNIFICANT EVENTS OCCURED OVERNIGHT. VITAL SIGNS STABLE. PATIENT IS ON 3 LITERS OXYGEN VIA NASAL CANNULA MAINTIANING O2 LEVELS GREATER THAN 91%. SENT MRSA SWAB OF NARES, STILL PENDING COLLECTION FOR SPUTUM. DENIES PAIN. DENIES NAUSEA. LACTIC ACID IMPROVING.
--- NOTE | 2021-01-12 17:28 | NUR ---
SHIFT SUMMARY THE PATIENT IS ALERT AND ORIENTED, COOPERATIVE WITH CARE. THE PATIENT IS HARD OF HEARING, AND IS WEARING A HEARING AID IN THE RIGHT EAR. THE PATIENT IS ON 2.5 LITERS VIA NASAL CANNULA. LACTIC ACID LEVELS HAVE BEEN TRENDING DOWN THIS SHIFT. THE PATIENT IS RECEIVING LACTATED RINGERS AT 100 MLS/HR. VSS, NO ACUTE CHANGES THIS SHIFT.
[2021-01-13 04:34] LABS: BASOPHILS ABSOLUTE AUTO 0.01 K/mm3 (0.00-0.23); BASOPHILS PERCENT AUTO 0 % (0-2); EOSINOPHILS PERCENT AUTO 0 % (0-6); Hematocrit 22.8 % (37.0-53.0); Hemoglobin 6.9 g/dL (13.5-17.5); IMMATURE GRAN ABSOLUTE AUTO 0.14 K/mm3 (0.00-0.10); IMMATURE GRAN PERCENT AUTO 1 % (0-1); LYMPHOCYTES ABSOLUTE AUTO 0.41 K/mm3 (0.84-5.20); LYMPHOCYTES PERCENT AUTO 3 % (21-46); MONOCYTES ABSOLUTE AUTO 0.89 K/mm3 (0.16-1.47); MONOCYTES PERCENT AUTO 6 % (4-13); Mean Corpuscular HGB 28.5 pg (26.0-34.0); Mean Corpuscular HGB Conc 30.3 g/dL (31.5-36.5); Mean Corpuscular Volume 94 fL (80-100); Mean Platelet Volume 11.4 fL (9.1-12.4); NEUTROPHILS ABSOLUTE AUTO 14.51 K/mm3 (1.96-9.15); NEUTROPHILS PERCENT AUTO 91 % (41-73); Platelet Count 145 K/mm3 (150-400); RDW Standard Deviation 51.8 fL (35.1-46.3); Red Blood Cell Count 2.42 M/mm3 (4.30-5.90); White Blood Cell Count 15.96 K/mm3 (4.00-11.30)
[2021-01-13 04:47] LABS: International Normalized Ratio 2.55; Prothrombin Time Results 26.1 Sec (9.7-11.5)
[2021-01-13 04:59] LABS: Bun/Creatinine Ratio 30.8 (12.0-20.0); Calcium, Blood 8.6 mg/dL (8.5-10.1); Creatinine, Blood 1.46 mg/dL (0.60-1.20); Percent Saturation 18.9 % (20.0-50.0); Potassium, Blood 4.7 mmol/L (3.5-5.5)
--- NOTE | 2021-01-13 07:20 | NUR ---
PATIENT SUMMARY PATIENT IS ALERT AND ORIENTED X3-4 FORGETFUL AND HARD OF HEARING. VS STABLE THROUGHOUT NIGHT. NO COMPLAINTS OF CHEST PAIN OR SHORTNESS OF BREATH. ALL CARES COMPLETED ORDERED AND MEDICATIONS GIVEN ACCORDING TO NURSING JUDGEMENT. ALL UNFINISHED CARES ENDORSED TO ONCOMING RN. COULD NOT GET SPUTUM MY SHIFT.
--- NOTE | 2021-01-13 17:14 | NUR ---
SHIFT SUMMARY PATIENT IS RECEIVING 1 UNIT OF PACKED RED BLOOD CELLS. THE PATIENT IS ON RA SATTING AT 94% WILL CONTINUE TO MONITOR PATIENT UNTIL REPORT IS GIVEN TO THE NEXT NURSE.
[2021-01-13 20:11] LABS: Vancomycin, Trough 7.2 ug/mL (5.0-10.0)
[2021-01-14 04:49] LABS: BASOPHILS ABSOLUTE AUTO 0.02 K/mm3 (0.00-0.23); BASOPHILS PERCENT AUTO 0 % (0-2); EOSINOPHILS PERCENT AUTO 0 % (0-6); Hematocrit 24.8 % (37.0-53.0); IMMATURE GRAN ABSOLUTE AUTO 0.19 K/mm3 (0.00-0.10); IMMATURE GRAN PERCENT AUTO 1 % (0-1); LYMPHOCYTES ABSOLUTE AUTO 0.54 K/mm3 (0.84-5.20); LYMPHOCYTES PERCENT AUTO 4 % (21-46); MONOCYTES ABSOLUTE AUTO 0.71 K/mm3 (0.16-1.47); MONOCYTES PERCENT AUTO 5 % (4-13); Mean Corpuscular HGB 29.9 pg (26.0-34.0); Mean Corpuscular HGB Conc 32.3 g/dL (31.5-36.5); Mean Corpuscular Volume 93 fL (80-100); Mean Platelet Volume 11.9 fL (9.1-12.4); NEUTROPHILS ABSOLUTE AUTO 11.66 K/mm3 (1.96-9.15); NEUTROPHILS PERCENT AUTO 89 % (41-73); Platelet Count 178 K/mm3 (150-400); RDW Coefficient Variation 15.2 % (11.7-14.2); Red Blood Cell Count 2.68 M/mm3 (4.30-5.90); White Blood Cell Count 13.12 K/mm3 (4.00-11.30)
[2021-01-14 05:04] LABS: International Normalized Ratio 2.36; Prothrombin Time Results 24.3 Sec (9.7-11.5)
[2021-01-14 05:10] LABS: Bun/Creatinine Ratio 39.1 (12.0-20.0); Creatinine, Blood 1.28 mg/dL (0.60-1.20); Potassium, Blood 4.7 mmol/L (3.5-5.5)
[2021-01-14] MEDS ORDERED: PRED20 PO (10:53)
[2021-01-14] MEDS ORDERED: FAMO20 PO (10:53)
[2021-01-14] MEDS ORDERED: CEFD300 PO (10:54)
--- NOTE | 2021-01-14 12:20 | NUR ---
AWARE [facility] WILL CALL ON SATURDAY FOR HOME HEALTH. REVIEW D'C W/PATIENT. AWARE 3 MEDS AT [facility]. REVIEW HOW AND WHEN TO TAKE. HAS F/U APPT 01/16/21 AND AWARE NEEDS TO KEEP. AWARE CAN RETURN IF NEEDED. ANSWER ALL QUESTIONS. VERBALIZES UNDERSTANDING. IN W/C TO POV.
== END 2021-01-14 12:23 | disposition home or self-care (01) | DRG 871 ==
LOC: ER 15:32 → MEDS 22:20
PROVIDERS: Emergency Medicine; Internal Medicine; Student in an Organized Health Care Education/Training Program; ADMIT Hospitalist
PROC: 30233N1 Transfusion of Nonautologous Red Blood Cells into Peripheral Vein, Percutaneous Approach (ICD-10-PCS; principal; 2021-01-12)
DX: A41.9 Sepsis, unspecified organism (principal); J18.9 Pneumonia, unspecified organism; R65.21 Severe sepsis with septic shock; N17.9 Acute kidney failure, unspecified; J44.1 Chronic obstructive pulmonary disease with (acute) exacerbation; J44.0 Chronic obstructive pulmonary disease with (acute) lower respiratory infection; Z66 Do not resuscitate; N40.0 Benign prostatic hyperplasia without lower urinary tract symptoms; E78.5 Hyperlipidemia, unspecified; G30.9 Alzheimer's disease, unspecified; F02.80 Dementia in other diseases classified elsewhere, unspecified severity, without behavioral disturbance, psychotic disturbance, mood disturbance, and anxiety; N18.9 Chronic kidney disease, unspecified; I35.0 Nonrheumatic aortic (valve) stenosis; I25.2 Old myocardial infarction; I25.10 Atherosclerotic heart disease of native coronary artery without angina pectoris; Z86.73 Personal history of transient ischemic attack (TIA), and cerebral infarction without residual deficits; G47.33 Obstructive sleep apnea (adult) (pediatric); Z95.1 Presence of aortocoronary bypass graft; Z95.0 Presence of cardiac pacemaker; Z98.890 Other specified postprocedural states; Z90.49 Acquired absence of other specified parts of digestive tract; Z79.899 Other long term (current) drug therapy; Z79.01 Long term (current) use of anticoagulants; D50.9 Iron deficiency anemia, unspecified; N18.30 Chronic kidney disease, stage 3 unspecified
CPT/HCPCS: 36415; 36430; 71045; 71046; 80048; 80053; 80202; 81001; 82728; 83540; 83550; 83605; 84443; 84484; 85025; 85610; 85730; 86850; 86900; 86901; 86923; 87040; 93005; 93010; 94640; 94644; 94760; 94762; 96365; 96366; 99285-25; A9270; J0692; J2543; J2916; J2920; J3370; J7050; J7120; J7512; P9016; U0004

== ENCOUNTER 2021-02-13 11:24 | Inpatient (IN) | payer MEDICARE, OTHER ==
[~2021-02-13] VITALS: Ht 177.8 cm; Wt 66.5 kg
[~2021-02-13 11:24] MED LIST changes: +CEFD300 PO; -DONE5 PO; -ISOSORBIDE MONO30 MG PO; -METO25ER PO; +Norco 5-325 Ta1 EACH PO
[2021-02-13 12:43] LABS: BASOPHILS ABSOLUTE AUTO 0.01 K/mm3 (0.00-0.23); BASOPHILS PERCENT AUTO 0 % (0-2); EOSINOPHILS ABSOLUTE AUTO 0.11 K/mm3 (0.00-0.68); EOSINOPHILS PERCENT AUTO 2 % (0-6); Hematocrit 24.5 % (37.0-53.0); Hemoglobin 7.3 g/dL (13.5-17.5); IMMATURE GRAN ABSOLUTE AUTO 0.03 K/mm3 (0.00-0.10); IMMATURE GRAN PERCENT AUTO 0 % (0-1); LYMPHOCYTES ABSOLUTE AUTO 0.58 K/mm3 (0.84-5.20); LYMPHOCYTES PERCENT AUTO 8 % (21-46); MONOCYTES ABSOLUTE AUTO 0.64 K/mm3 (0.16-1.47); MONOCYTES PERCENT AUTO 9 % (4-13); Mean Corpuscular HGB 28.5 pg (26.0-34.0); Mean Corpuscular HGB Conc 29.8 g/dL (31.5-36.5); Mean Corpuscular Volume 96 fL (80-100); Mean Platelet Volume 10.7 fL (9.1-12.4); NEUTROPHILS ABSOLUTE AUTO 5.69 K/mm3 (1.96-9.15); NEUTROPHILS PERCENT AUTO 81 % (41-73); Platelet Count 208 K/mm3 (150-400); RDW Coefficient Variation 17.1 % (11.7-14.2); RDW Standard Deviation 60.5 fL (35.1-46.3); Red Blood Cell Count 2.56 M/mm3 (4.30-5.90); White Blood Cell Count 7.06 K/mm3 (4.00-11.30)
[2021-02-13 12:50] LABS: Albumin, Blood 2.3 g/dL (3.4-5.0); Albumin/Globulin Ratio 0.6 (0.8-1.8); Bilirubin, Total 0.2 mg/dL (0.1-1.0); Bun/Creatinine Ratio 27.6 (12.0-20.0); Calcium, Blood 8.5 mg/dL (8.5-10.1); Creatinine, Blood 1.27 mg/dL (0.60-1.20); Globulin, Blood 3.8 g/dL (2.2-4.0); Potassium, Blood 4.4 mmol/L (3.5-5.5); Prothrombin Time Results 45.2 Sec (9.7-11.5); Total Protein, Blood 6.1 g/dL (6.4-8.2)
[2021-02-13 13:06] LABS: International Normalized Ratio 4.77
[2021-02-13] MEDS ORDERED: DONE5 PO (13:27)
[2021-02-13] MEDS ORDERED: FAMO20 PO (13:28)
[2021-02-13] MEDS ORDERED: ISOSORBIDE MONO30 MG PO (13:30)
[2021-02-13] MEDS ORDERED: PRAV20 PO (13:31)
[2021-02-13] MEDS ORDERED: METO25ER PO (13:31)
[2021-02-13] MEDS ORDERED: FINA5 PO (13:31)
[2021-02-13] MEDS ORDERED: TAMS.4ER PO (13:32)
[2021-02-13] MEDS ORDERED: WARF5 PO (13:33)
[2021-02-13] MEDS ORDERED: FERSU300 PO (13:33)
[2021-02-13] MEDS ORDERED: CENTRUM SILVER1 EAC2 PO (13:47)
[2021-02-13] MEDS ORDERED: Vitamin B-12100 MCG PO (13:49)
[2021-02-13 16:12] LABS: Hematocrit 23.6 % (37.0-53.0)
[2021-02-13 19:32] LABS: SARS-Cov-2 (COVID-19) PCR, MMC NEGATIVE (NEGATIVE)
[2021-02-13 22:00] LABS: Hematocrit 23.6 % (37.0-53.0)
[2021-02-14 04:21] LABS: Hemoglobin 7.3 g/dL (13.5-17.5)
[2021-02-14 04:35] LABS: International Normalized Ratio 2.25; Prothrombin Time Results 22.4 Sec (9.7-11.5)
[2021-02-14 04:38] LABS: Albumin, Blood 1.9 g/dL (3.4-5.0); Albumin/Globulin Ratio 0.5 (0.8-1.8); Bilirubin, Total 0.3 mg/dL (0.1-1.0); Bun/Creatinine Ratio 21.9 (12.0-20.0); Calcium, Blood 8.4 mg/dL (8.5-10.1); Creatinine, Blood 1.37 mg/dL (0.60-1.20); Globulin, Blood 3.5 g/dL (2.2-4.0); Potassium, Blood 4.2 mmol/L (3.5-5.5); Total Protein, Blood 5.4 g/dL (6.4-8.2)
[2021-02-14 11:31] LABS: Hematocrit 24.4 % (37.0-53.0); Hemoglobin 7.3 g/dL (13.5-17.5)
[2021-02-14 15:27] LABS: Hematocrit 26.6 % (37.0-53.0); Hemoglobin 8.1 g/dL (13.5-17.5)
[2021-02-14 19:55] LABS: Hematocrit 24.8 % (37.0-53.0); Hemoglobin 7.5 g/dL (13.5-17.5)
[2021-02-14 23:58] LABS: Hematocrit 23.3 % (37.0-53.0); Hemoglobin 7.2 g/dL (13.5-17.5)
[2021-02-15 04:04] LABS: BASOPHILS ABSOLUTE AUTO 0.01 K/mm3 (0.00-0.23); BASOPHILS PERCENT AUTO 0 % (0-2); EOSINOPHILS ABSOLUTE AUTO 0.15 K/mm3 (0.00-0.68); EOSINOPHILS PERCENT AUTO 3 % (0-6); Hematocrit 26.1 % (37.0-53.0); Hemoglobin 7.7 g/dL (13.5-17.5); IMMATURE GRAN ABSOLUTE AUTO 0.02 K/mm3 (0.00-0.10); IMMATURE GRAN PERCENT AUTO 0 % (0-1); LYMPHOCYTES ABSOLUTE AUTO 0.56 K/mm3 (0.84-5.20); LYMPHOCYTES PERCENT AUTO 11 % (21-46); MONOCYTES ABSOLUTE AUTO 0.61 K/mm3 (0.16-1.47); MONOCYTES PERCENT AUTO 12 % (4-13); Mean Corpuscular HGB 26.9 pg (26.0-34.0); Mean Corpuscular HGB Conc 29.5 g/dL (31.5-36.5); Mean Platelet Volume 10.5 fL (9.1-12.4); NEUTROPHILS ABSOLUTE AUTO 3.68 K/mm3 (1.96-9.15); NEUTROPHILS PERCENT AUTO 73 % (41-73); Platelet Count 171 K/mm3 (150-400); RDW Coefficient Variation 17.8 % (11.7-14.2); RDW Standard Deviation 59.3 fL (35.1-46.3); Red Blood Cell Count 2.86 M/mm3 (4.30-5.90); White Blood Cell Count 5.03 K/mm3 (4.00-11.30)
[2021-02-15 04:09] LABS: Mean Corpuscular Volume 91 fL (80-100)
[2021-02-15 04:22] LABS: Bun/Creatinine Ratio 18.9 (12.0-20.0); Calcium, Blood 8.3 mg/dL (8.5-10.1); Creatinine, Blood 1.32 mg/dL (0.60-1.20)
[2021-02-15 08:32] LABS: Hematocrit 26.1 % (37.0-53.0); Hemoglobin 7.9 g/dL (13.5-17.5)
== END 2021-02-15 12:23 | disposition home or self-care (01) | DRG 378 ==
LOC: ER 11:24 → PCU 13:54
PROVIDERS: Emergency Medicine; Internal Medicine; Nurse Practitioner Acute Care; Student in an Organized Health Care Education/Training Program; ADMIT Family Medicine
PROC: 30233N1 Transfusion of Nonautologous Red Blood Cells into Peripheral Vein, Percutaneous Approach (ICD-10-PCS; principal; 2021-02-13)
PROC: 0W3P8ZZ Control Bleeding in Gastrointestinal Tract, Via Natural or Artificial Opening Endoscopic (ICD-10-PCS; 2021-02-14)
PROC: 0DB68ZX Excision of Stomach, Via Natural or Artificial Opening Endoscopic, Diagnostic (ICD-10-PCS; 2021-02-14 11:15)
DX: K31.811 Angiodysplasia of stomach and duodenum with bleeding (principal); I48.20 Chronic atrial fibrillation, unspecified; I50.22 Chronic systolic (congestive) heart failure; I13.0 Hypertensive heart and chronic kidney disease with heart failure and stage 1 through stage 4 chronic kidney disease, or unspecified chronic kidney disease; Z20.822 Contact with and (suspected) exposure to COVID-19; G30.9 Alzheimer's disease, unspecified; F02.80 Dementia in other diseases classified elsewhere, unspecified severity, without behavioral disturbance, psychotic disturbance, mood disturbance, and anxiety; J44.9 Chronic obstructive pulmonary disease, unspecified; N18.30 Chronic kidney disease, stage 3 unspecified; Z66 Do not resuscitate; G47.33 Obstructive sleep apnea (adult) (pediatric); I35.0 Nonrheumatic aortic (valve) stenosis; D50.9 Iron deficiency anemia, unspecified; E78.5 Hyperlipidemia, unspecified; D63.1 Anemia in chronic kidney disease; R79.1 Abnormal coagulation profile; N40.0 Benign prostatic hyperplasia without lower urinary tract symptoms; I25.10 Atherosclerotic heart disease of native coronary artery without angina pectoris; I25.2 Old myocardial infarction; Z87.01 Personal history of pneumonia (recurrent); Z95.1 Presence of aortocoronary bypass graft; Z90.49 Acquired absence of other specified parts of digestive tract; Z86.73 Personal history of transient ischemic attack (TIA), and cerebral infarction without residual deficits; Z95.0 Presence of cardiac pacemaker; Z95.5 Presence of coronary angioplasty implant and graft; Z79.01 Long term (current) use of anticoagulants; Z79.899 Other long term (current) drug therapy; K44.9 Diaphragmatic hernia without obstruction or gangrene
CPT/HCPCS: 36415; 71045; 80048; 80053; 85014; 85018; 85025; 85610; 86850; 86900; 86901; 86923; 93005; 93010; 96374; 99285-25; A9270; C9113; J2370; J2704; J3430; J7120; P9016; U0004

== ENCOUNTER 2021-09-02 04:47 | Inpatient (IN) | payer MEDICARE, OTHER ==
[~2021-09-02] VITALS: Ht 177.8 cm; Wt 65.2 kg
[~2021-09-02 04:47] MED LIST changes: +B-12500 MC2 PO; +CENTRUM SILVER1 EAC2 PO; +DONE5 PO; +FAMO20 PO; +ISOSORBIDE MONO30 MG PO; +METO25ER PO; +Prinivil10 MG PO; +TAMSULOSIN HCL0.4 M1 PO; +Vitamin B-12100 MCG PO
[2021-09-02 05:32] LABS: BASOPHILS ABSOLUTE AUTO 0.02 K/mm3 (0.00-0.23); BASOPHILS PERCENT AUTO 0 % (0-2); EOSINOPHILS ABSOLUTE AUTO 0.12 K/mm3 (0.00-0.68); EOSINOPHILS PERCENT AUTO 1 % (0-6); Hematocrit 27.6 % (37.0-53.0); Hemoglobin 8.3 g/dL (13.5-17.5); IMMATURE GRAN ABSOLUTE AUTO 0.06 K/mm3 (0.00-0.10); IMMATURE GRAN PERCENT AUTO 1 % (0-1); LYMPHOCYTES ABSOLUTE AUTO 0.75 K/mm3 (0.84-5.20); LYMPHOCYTES PERCENT AUTO 7 % (21-46); MONOCYTES PERCENT AUTO 7 % (4-13); Mean Corpuscular HGB 29.1 pg (26.0-34.0); Mean Corpuscular HGB Conc 30.1 g/dL (31.5-36.5); Mean Corpuscular Volume 97 fL (80-100); Mean Platelet Volume 11.7 fL (9.1-12.4); NEUTROPHILS ABSOLUTE AUTO 9.78 K/mm3 (1.96-9.15); NEUTROPHILS PERCENT AUTO 85 % (41-73); Platelet Count 127 K/mm3 (150-400); RDW Coefficient Variation 17.1 % (11.7-14.2); RDW Standard Deviation 60.7 fL (35.1-46.3); Red Blood Cell Count 2.85 M/mm3 (4.30-5.90); White Blood Cell Count 11.53 K/mm3 (4.00-11.30)
[2021-09-02 05:43] LABS: Albumin/Globulin Ratio 0.9 (0.8-1.8); Bilirubin, Total 0.5 mg/dL (0.1-1.0); Bun/Creatinine Ratio 21.7 (12.0-20.0); Calcium, Blood 8.6 mg/dL (8.5-10.1); Creatinine, Blood 1.57 mg/dL (0.60-1.20); Globulin, Blood 3.4 g/dL (2.2-4.0); Potassium, Blood 4.5 mmol/L (3.5-5.5); Total Protein, Blood 6.4 g/dL (6.4-8.2)
[2021-09-02 06:29] LABS: Influenza A, PCR NEGATIVE (NEGATIVE); Influenza B, PCR NEGATIVE (NEGATIVE); Resp Syncytial Virus, PCR NEGATIVE (NEGATIVE); SARS-Cov-2 (COVID-19) PCR, MMC NEGATIVE (NEGATIVE)
[2021-09-02 07:48] LABS: Source, Urine Straight Cath
[2021-09-02 07:53] LABS: Appearance, Urine Clear (Clear); Bilirubin, Urine Neg (Neg); Blood, Urine Neg (Neg); Color, Urine Yellow (P-Yellow); Glucose Qualitative, Urine Neg (Neg); Ketones, Urine Neg (Neg); Leukocyte Esterase, Urine Neg (Neg); Nitrite, Urine Neg (Neg); Protein, Urine 2+ (Neg); Specific Gravity, Urine 1.025 (1.003-1.022); Urobilinogen, Urine NORM (Normal)
[2021-09-02 08:01] LABS: Bacteria Few /hpf; Red Blood Cells, Urine 0-2 /hpf (0-2); Squamous Epithelial Cells Few /hpf (Few); White Blood Cells, Urine 0-2 /hpf (0-5)
[2021-09-02 13:16] LABS: Anti-Xa UFH, PHA Monitoring <0.10 IU/mL; International Normalized Ratio 1.18; Prothrombin Time Results 12.3 Sec (9.7-11.5)
--- NOTE | 2021-09-02 18:00 | NUR ---
SHIFT SUMMARY: NO ACUTE EVENTS. C/O HEADACHE; MEDICATED WITH TYLENOL WITH RELIEF. NAPPED THIS AFTERNOON. DENIED ANY CHEST DISCOMFORT. 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 NO EVENTS ON TELEMETRY, V PACED AT 68 BPM. HEPARIN GTT INFUSING AT 15 UNITS/KG/HR (19.5 ML/HR). USING URINAL INDEPENDENTLY, NEEDS ASSISTANCE WITH AMBULATION, USES CANE, GAIT IS UNSTEADY. BED ALARM ON.
--- NOTE | 2021-09-03 04:37 | NUR ---
PT A & OX4. V/S WNL. CARDIAC DIET. PT CONTINENT OF URINE/BOWEL. 1-ASSIST WITH CANE AND GB. PT DENIED ANY C/P OR SOB. SCHEDULED MEDS WHOLE, ONE AT A TIME. [place]. IV'S TO L) WRIST AND L) FOREARM. IV HEPARIN DRIP AT 19.5 ML/HR ORDERED. NO BM THIS SHIFT. TELE: PACED; HR: 63 BPM. NO PRN MEDS GIVEN. WILL CONTINUE TO MONITOR.
[2021-09-03 05:13] LABS: BASOPHILS ABSOLUTE AUTO 0.02 K/mm3 (0.00-0.23); BASOPHILS PERCENT AUTO 0 % (0-2); EOSINOPHILS ABSOLUTE AUTO 0.15 K/mm3 (0.00-0.68); EOSINOPHILS PERCENT AUTO 2 % (0-6); Hemoglobin 8.5 g/dL (13.5-17.5); IMMATURE GRAN ABSOLUTE AUTO 0.05 K/mm3 (0.00-0.10); IMMATURE GRAN PERCENT AUTO 1 % (0-1); LYMPHOCYTES ABSOLUTE AUTO 0.67 K/mm3 (0.84-5.20); LYMPHOCYTES PERCENT AUTO 8 % (21-46); MONOCYTES ABSOLUTE AUTO 0.76 K/mm3 (0.16-1.47); MONOCYTES PERCENT AUTO 9 % (4-13); Mean Corpuscular HGB 28.5 pg (26.0-34.0); Mean Corpuscular HGB Conc 29.3 g/dL (31.5-36.5); Mean Corpuscular Volume 97 fL (80-100); NEUTROPHILS ABSOLUTE AUTO 7.24 K/mm3 (1.96-9.15); NEUTROPHILS PERCENT AUTO 82 % (41-73); Platelet Count 127 K/mm3 (150-400); RDW Coefficient Variation 16.8 % (11.7-14.2); RDW Standard Deviation 59.7 fL (35.1-46.3); Red Blood Cell Count 2.98 M/mm3 (4.30-5.90); White Blood Cell Count 8.89 K/mm3 (4.00-11.30)
[2021-09-03 05:37] LABS: Bun/Creatinine Ratio 26.2 (12.0-20.0); Calcium, Blood 8.7 mg/dL (8.5-10.1); Creatinine, Blood 1.41 mg/dL (0.60-1.20); Potassium, Blood 4.4 mmol/L (3.5-5.5)
--- NOTE | 2021-09-03 14:47 | NUR ---
AND DAUGHTER AT BEDSIDE, REPORT THAT PATIENT HAS DONE A SPEECH EVAL PREVIOUSLY AND IS ON REGULAR FOOD AND THIN LIQUIDS, SMALL BITES AND UP FOR 30 MIN AFTER.
--- NOTE | 2021-09-03 17:39 | NUR ---
SHIFT SUMMARY: A&Ox4. VSS. HEPARIN DRIP STOPPED AND LOVENOX INITIATED. SALINE LOCK LFA. HAS BEEN UP TO CHAIR ALL DAY, INCLUDING AND UP TO 30-MINUTES POSTPRANDIAL. 1-2 PERSON ASSIST WITH AMBULATION D/T UNSTEADY GAIT. NO BM TODAY. VOIDING TODAY. DENIES PAIN OR SOB. FAMILY VISITING T/O DAY. REPORT TO ONCRAYMON MONSON RN.
--- NOTE | 2021-09-04 04:48 | NUR ---
PT A & 0X3. V/S WNL. CARDIAC DIET. PILLS, ONE AT A TIME. UP IN CHAIR FOR MEALS DUE TO HIGH ASPIRATION RISK. HOB BILAT. CONTINENT OF URINE/BOWEL. 1-ASSIST, CANE & GB. NO BM THIS SHIFT. PT DENIED PAIN OR SOB. IV TO L) AC AND L) WRIST. TELE: PACED. WILL CONTINUE TO MONITOR.
[2021-09-04] MEDS ORDERED: DOCU100 PO (13:05)
[2021-09-04] MEDS ORDERED: Milk Of Ma400 MG/5 M PO (13:06)
[2021-09-04] MEDS ORDERED: SENN187 PO (13:07)
[2021-09-04] MEDS ORDERED: VISBIOME 112.51 EACH PO (13:07)
[2021-09-04] MEDS ORDERED: AZIT250 PO (13:08)
[2021-09-04] MEDS ORDERED: CEPH500 PO (13:09)
--- NOTE | 2021-09-04 14:17 | NUR ---
PT DISCHARGED HOME Pt worked with therapy today, pt discharged from therapy, no outpatient therapy needed. MD ordered pt to be discharged home. Reviewed discharge teaching with pt/family, verbalized understanding. [facility] Removed IVs in left hand/forearm. Pt left medical floor at 1400.
== END 2021-09-04 14:01 | disposition home or self-care (01) | DRG 194 ==
LOC: ER 04:47 → MEDS 04:48
PROVIDERS: Emergency Medicine; Student in an Organized Health Care Education/Training Program; ADMIT Internal Medicine
DX: J18.9 Pneumonia, unspecified organism (principal); N17.9 Acute kidney failure, unspecified; I50.22 Chronic systolic (congestive) heart failure; I13.0 Hypertensive heart and chronic kidney disease with heart failure and stage 1 through stage 4 chronic kidney disease, or unspecified chronic kidney disease; J44.0 Chronic obstructive pulmonary disease with (acute) lower respiratory infection; Z20.822 Contact with and (suspected) exposure to COVID-19; Z66 Do not resuscitate; I35.0 Nonrheumatic aortic (valve) stenosis; D63.1 Anemia in chronic kidney disease; G30.9 Alzheimer's disease, unspecified; R07.9 Chest pain, unspecified; F02.80 Dementia in other diseases classified elsewhere, unspecified severity, without behavioral disturbance, psychotic disturbance, mood disturbance, and anxiety; N18.30 Chronic kidney disease, stage 3 unspecified; R13.10 Dysphagia, unspecified; I48.91 Unspecified atrial fibrillation; N40.0 Benign prostatic hyperplasia without lower urinary tract symptoms; I25.10 Atherosclerotic heart disease of native coronary artery without angina pectoris; G47.33 Obstructive sleep apnea (adult) (pediatric); E78.5 Hyperlipidemia, unspecified; Z95.0 Presence of cardiac pacemaker; Z95.1 Presence of aortocoronary bypass graft; I25.2 Old myocardial infarction; Z95.2 Presence of prosthetic heart valve; Z87.01 Personal history of pneumonia (recurrent); Z90.49 Acquired absence of other specified parts of digestive tract; Z98.890 Other specified postprocedural states; Z86.73 Personal history of transient ischemic attack (TIA), and cerebral infarction without residual deficits; Z79.899 Other long term (current) drug therapy
CPT/HCPCS: 0241U; 36415; 71045; 80048; 80053; 81001; 83605; 84145; 84484; 85025; 85520; 85610; 85730; 87040; 93005; 93010; 94640; 94664; 94760; 94762; 96374; 97110; 97162; 99285-25; A9270; G0378; J0696; J1644; J1650